=== PATIENT | female | born 1935 | race Caucasian/White ===

== ENCOUNTER 2018-07-19 10:24 | Day surgery (SDC) | payer MEDICARE, OTHER ==
[2018-07-16 12:52] LABS: ALANINE AMINOTRANSFERASE 32 U/L (12-78); ALBUMIN 3.9 g/dL (3.4-5.0); ANION GAP 11 mmol/L (5-15); CHLORIDE 107 mmol/L (98-107); CREATININE 0.62 mg/dL (0.55-1.02)
[2018-07-16 12:55] LABS: ALKALINE PHOSPHATASE 77 U/L (45-117); BILIRUBIN,TOTAL 0.4 mg/dL (0.2-1.0); TOTAL PROTEIN 7.5 g/dL (6.4-8.2)
[~2018-07-19] VITALS: Ht 160 cm; Wt 61.8 kg
[~2018-07-19 10:24] MED LIST: CETI10CA PO; CHOL2000 PO; CYCL-259 PO; ESTR0.3T PO; FLAX10004 PO; GABA300C10 PO; LOSA1TAB25 PO; OMEG-14 PO; PANT40TA5 PO; POTA99TA3 PO; ROPI0.5T2 PO; VALA500T PO; VITA1TAB3 PO; leg cramp PO; trubiotics PO
[2018-07-19 11:00] VITALS: BP 159/90
[2018-07-19] MEDS ORDERED: LACTATED RINGERS 1,000 ML IV SCH (11:14)
[2018-07-19] MEDS ORDERED: METOPROLOL 1 MG/ML, 5ML ONE (12:42)
[2018-07-19] MEDS ORDERED: ONDANSETRON 2MG/ML, 2ML ONE (12:42)
[2018-07-19] MEDS ORDERED: DEXAMETHASONE 4 MG/ML, 1ML ONE (12:42)
[2018-07-19] MEDS ORDERED: PROPOFOL 10 MG/ML, 20ML ONE (12:42)
[2018-07-19] MEDS ORDERED: CEFAZOLIN 1,000 MG ONE (12:42)
[2018-07-19] MEDS ORDERED: FENTANYL PF 100 MCG/2ML ONE ×2 (12:50→13:50)
[2018-07-19] MEDS ORDERED: KETOROLAC 30 MG/1 ML IV PRN (13:30)
[2018-07-19] MEDS ORDERED: DIAZEPAM 5 MG/ML, 2ML IVPush PRN (13:30)
[2018-07-19] MEDS ORDERED: MEPERIDINE/PF 25MG/0.5ML IVPush PRN (13:30)
[2018-07-19] MEDS ORDERED: OXYcodone 5 MG/5 ML ORAL.SOL UDC PO PRN (13:30)
[2018-07-19] MEDS ORDERED: ALBUTEROL SULFATE 2.5 MG/3 ML NPPB PRN (13:30)
[2018-07-19] MEDS ORDERED: PROMETHAZINE 25 MG/ML, 1ML IV PRN (13:30)
[2018-07-19] MEDS ORDERED: hydrALAzine 20 MG/ML, 1ML IV PRN (13:30)
[2018-07-19] MEDS ORDERED: ACETAMINOPHEN 325 MG TABLET PO PRN (13:30)
[2018-07-19] MEDS ORDERED: LABETALOL 5MG/ML, 20ML IV PRN (13:30)
[2018-07-19] MEDS ORDERED: HYDROmorphone 2 MG/ML, 1ML ONE (13:50)
[2018-07-19] MEDS ORDERED: OXYcodone 5 MG/5 ML ORAL.SOL UDC ONE (13:50)
[2018-07-19] MEDS: HYDROmorphone 2 MG/ML, 1ML IVPush PRN ×2 (13:58→14:07)
[2018-07-19] MEDS: FENTANYL PF 100 MCG/2ML IV PRN ×2 (13:59→14:35)
[2018-07-19] MEDS ORDERED: KETOROLAC 30 MG/1 ML ONE (14:13)
[2018-07-19] MEDS ORDERED: hydrALAzine 20 MG/ML, 1ML ONE (14:36)
== END 2018-07-19 17:10 | disposition home or self-care (01) ==
LOC: OUT 10:24
PROVIDERS: ATTEND Orthopaedic Surgery
DX: S82.842A Displaced bimalleolar fracture of left lower leg, initial encounter for closed fracture (principal); M81.0 Age-related osteoporosis without current pathological fracture; I10 Essential (primary) hypertension; M19.90 Unspecified osteoarthritis, unspecified site; Z79.899 Other long term (current) drug therapy; Z88.8 Allergy status to other drugs, medicaments and biological substances; Z90.710 Acquired absence of both cervix and uterus; Z98.51 Tubal ligation status; Z98.890 Other specified postprocedural states; Z82.61 Family history of arthritis; Z82.49 Family history of ischemic heart disease and other diseases of the circulatory system; X58.XXXA Exposure to other specified factors, initial encounter; Y93.89 Activity, other specified; Y92.89 Other specified places as the place of occurrence of the external cause; Y99.8 Other external cause status
CPT/HCPCS: 27814; 36415; 64445; 64447; 73600; 76000; 80053; 93005; C1713; J0360; J0690; J1100; J1170; J1885; J2405; J2704; J3010